=== PATIENT | female | born 2000 | race Caucasian/White ===

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

== ENCOUNTER 2021-03-29 14:26 | Outpatient (REF) | payer MEDICAID, SELFPAY ==
[2021-03-31 10:26] LABS: COVID-19 RT-PCR UVMMC Result Negative (Negative)
== END 2021-03-29 14:27 | disposition home or self-care (01) ==
LOC: LBN 14:26
PROVIDERS: PCP Internal Medicine; Visit Provider Internal Medicine
DX: Z20.822 Contact with and (suspected) exposure to COVID-19 (principal)
CPT/HCPCS: U0003

== ENCOUNTER 2021-05-03 18:04 | Emergency (ER) | payer MEDICAID, SELFPAY ==
[2021-05-03 18:08] VITALS: BP 138/94; PULSE 110; RESP 18; TEMP 37.2; O2SAT 99
--- NOTE | 2021-05-03 18:46 | ED.GENADUL_ITS ---
Discharge Plan Disposition Patient Disposition: HOME Condition: Stable Discharge Details Clinical Impression: Otitis media Primary Care Provider: Marquita Shell ED Provider: Eliot Anderson Home Meds and New Rx's Prescriptions: New amoxicillin-pot clavulanate [Augmentin] 875-125 mg tablet 1 tab PO BID Qty: 10 RF: 0 Continued tretinoin 0.05 % cream 1 applic TP QHS Qty: 45 RF: 3 minocycline 100 mg tablet 100 mg PO DAILY Qty: 30 RF: 0 Hold Instructions: Home Medication placed on hold at Doctor's office Zyrtec 10 mg capsule 10 mg PO DAILY Qty: 30 RF: 2 trazodone 100 mg tablet 100 mg PO QHS PRN (Reason: sleep) Qty: 90 RF: 3 clindamycin-benzoyl peroxide 1.2 %(1 % base) -5 % gel 1 applic TP DAILY Qty: 45 RF: 3 Kyleena 17.5 mcg/24 hrs (5 yrs) 19.5 mg intrauterine device 1 device intrauterine ONCE RF: 0 Discharge Instructions Instructions: Ear Infection (ED) Additional Instructions: Augmentin as directed, first dose given now. [id number] Tylenol, Motrin, antihistamine, and decongestant as directed for symptomatic control. Please watch for new or worsening symptoms and return to the ER for any concerns. Lastly, I do recommend contacting your primary care provider for follow-up symptoms are improving the next few days. Medical Decision Making 20-year-old female reporting bilateral ear pain for the past 2 weeks, significant left ear pain today. She appears uncomfortable, crying. No evidence of otitis externa or perforated eardrum. The right eardrum appears dull but the left ear. Very erythematous, loss of landmarks. Given the duration of her symptoms and severity, I do believe initiating oral antibiotic therapy is reasonable. Patient did drive herself here to the ER, we discussed analgesia, she is agreeable to IM Toradol. We will also give a single dose of Augmentin now. We did discuss the importance of treating her symptoms with antihistamines, decongestants, and maxing out both Tylenol and Motrin for her discomfort. The patient did respond very well to the IM Toradol. No longer crying. Comfortable with discharge. Standard discharge and return precautions provided This documentation was generated using JDLabation system, please disregard any oddities of phrase or misspellings. Medical Records Medical records reviewed: Yes I reviewed the patient's medical records. HPI General Mode of arrival: ambulatory . Date/Time Provider Initiated Documentation: 05/03/21 18:35 . Limitations to Documentation: no limitations . Information obtained by: patient . HPI Narrative: This is a 20-year-old female, past medical history of allergies, asthma, states that she got over Covid a few weeks ago, presenting to the ER now reporting bilateral ear pain over the past 2 weeks, feels like she is underwater and that they need to pop. Patient reports that the discomfort in her left ear became severe earlier today. She denies any other recent illness, drainage from ears, fever, sore throat or cough. She does report nasal congestion. She tried ezoi-xna-nnsnjde eardrop over the past 24 hours and took a seasonal allergy pill because she was going somewhere with cats a couple days ago. She has not taken any Tylenol or Motrin for her discomfort. Related Data Home Medications Medication Instructions Recorded Confirmed levonorgestrel 1 device INTRAUTERINE ONCE 12/31/18 05/03/21 tretinoin 0.05 % topical cream 1 applic TP QHS #45 g 06/23/20 05/03/21 cetirizine 10 mg capsule 10 mg PO DAILY #30 cap 10/27/20 05/03/21 minocycline 100 mg tablet 100 mg PO DAILY #30 tab 10/27/20 05/03/21 trazodone 100 mg tablet 100 mg PO QHS PRN #90 tab 01/24/21 05/03/21 clindamycin 1.2 % (1 % 1 applic TP DAILY #45 gm 02/28/21 05/03/21 base)-benzoyl peroxide 5 % topical gel amoxicillin-pot clavulanate 1 tab PO BID #10 tab 05/03/21 [Augmentin] Previous Rx's Medication Instructions Recorded tretinoin 0.05 % topical cream 1 applic TP QHS #45 g 06/23/20 cetirizine 10 mg capsule 10 mg PO DAILY #30 cap 10/27/20 minocycline 100 mg tablet 100 mg PO DAILY #30 tab 10/27/20 trazodone 100 mg tablet 100 mg PO QHS PRN #90 tab 01/24/21 clindamycin 1.2 % (1 % 1 applic TP DAILY #45 gm 02/28/21 base)-benzoyl peroxide 5 % topical gel amoxicillin-pot clavulanate 1 tab PO BID #10 tab 05/03/21 [Augmentin] Allergies Allergy/AdvReac Type Severity Reaction Status Date / Time house dust AdvReac Intermediate Verified 05/03/21 18:13 [place] Allergy Mild Skin Rash Uncoded 05/03/21 18:13 CATS Allergy Mild Uncoded 05/03/21 18:13 DOGS Allergy Mild Uncoded 05/03/21 18:13 General Stated Complaint: EarProblem ANKITA: 4 Review of Systems Constitutional Constitutional: Denies fever(s) and Denies headache(s) Eyes Eyes: Denies eye discharge ENT Ears, Nose, Mouth, and Throat: Denies ear discharge, Reports otalgia, Denies headache(s), Denies neck pain and Denies sore throat Cardiovascular Cardiovascular: Denies dyspnea Respiratory Respiratory: Denies cough and Denies dyspnea Musculoskeletal Musculoskeletal: Denies neck pain Integumentary/Breasts Skin/Breast: Denies rash Neurologic Neurologic: Denies headache(s) PFSH Active Problem List IUD surveillance (Acute) Insomnia (Acute) Depression (Chronic) Allergic (Acute) Pediatric body mass index (BMI) of 85th percentile to less than 95th percentile for age (Acute 03/06/17) Gastroesophageal reflux disease without esophagitis (Acute 09/06/16) Acne vulgaris (Acute 01/23/17) Academic underachievement (Acute 12/19/16) Medical History Intermittent asthma Surgical History Tonsillectomy Family History Sister PCOS (polycystic ovarian syndrome) Menorrhagia Dysmenorrhea Asthma intermittent Anxiety Depression Mother Menorrhagia Dysmenorrhea Anxiety Depression Father Essential hypertension Diabetes Other Neoplasm Maternal Aunt - breast cancer Social History Smoking/Tobacco Use Status: Never Smoking risk assessment performed?: Yes Alcohol Intake: current Alcohol Intake frequency: holidays/special occasions only Alcohol type: hard liquor Substance use type: does not use Adopted: No Caregiver/Support person: No Foster care: No Household members: none Housing: house Number of Children: 0 number of grandchildren: 0 Communication Needs: None Education Level: high school Do you need help understanding health information?: Never 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 Pets and animals: No Sexually active: Yes Do you think of yourself as: straight/heterosexual Current gender identity: female What is your relationship status?: never How often do you talk on the phone with friends or family?: three or more times per week How often do you get together with friends or relatives?: once per week Do you belong to any clubs or organized social groups?: no Panel score (0-1 are the most socially isolated patients): 1 What type of physical activity do you participate in: walking and swimming Duration: 30-45 minutes/day Frequency: daily Minerva/Hindu: Mormonism Seatbelt use: always Helmet use: Yes Helmet use: always Drive intox or ride w/intox [employer] truck driver: No Water heater temp set <120 deg: Yes Fire extinguisher in home: Yes Carbon monox detector in home: Yes Firearms in home: No Do you feel safe at home: Yes Do you feel safe in your relationship?: Yes Female Reproductive History Menstrual Age of Menarche: 14 control method: progestin IUCD History History 0 Para Hx # Term Pregnancies Multiple births Hx # Pregnancies Ectopic pregnancies AB induced Hx Number of Living Children AB spontaneous Exam Const General: cooperative, healthy appearing and other (Uncomfortable, crying) Orientation: alert and awake HENMT Head: normal to inspection, normocephalic and atraumatic Ears: external ears normal, EAC's normal and TM abnormal dull on the right, erythematous on the left and with loss of landmarks on the left; not perforated and not retracted General nose exam: external nose normal Face and sinus: normal facial exam Mouth: moist mucous membranes Throat: posterior oropharynx normal Eyes General: appearance normal, both eyes and all related structures Conjunctivae: conjunctivae normal Neck Neck: normal visual inspection, trachea midline and supple Resp Effort & Inspection: normal respiratory effort and able to speak in complete sentences Auscultation: clear to auscultation bilaterally Cardio Rate: regular rate Rhythm: regular rhythm Skin General skin exam: no rashes or lesions noted Neuro General: patient alert, patient awake, moves all extremities and no focal motor deficits Sensory Exam: no sensory deficits noted Psych Appearance: grossly normal Mental Status: mental status grossly normal Course Vital Signs Vital signs: Vital Signs Temperature 37.2 C 05/03/21 18:08 Pulse 110 H 05/03/21 18:08 Respiratory Rate 18 05/03/21 18:08 Blood Pressure 138/94 H 05/03/21 18:08 Pulse Oximetry 99 05/03/21 18:08 Temperature 37.2 C 05/03/21 18:08 Temperature Source Skin 05/03/21 18:08 Pulse 110 H 05/03/21 18:08 Respiratory Rate 18 05/03/21 18:08 Respiratory Effort 05/03/21 18:14 Blood Pressure 138/94 H 05/03/21 18:08 Blood Pressure Position Sitting 05/03/21 18:08 Pulse Oximetry 99 05/03/21 18:08 Oxygen Delivery Method Room Air 05/03/21 18:08 Oxygen Flow Rate 0 05/03/21 18:08 Pain Level 8 05/03/21 18:30 PAWSS Have you Been Recently Intoxicated or Drunk Within the Last 30 days?: No Have you Ever Experienced Previous Episodes of Alcohol Withdrawal?: No Have you ever Experienced Withdrawal Seizures?: No Have you ever Experienced Delirium Tremens(DT)s?: No Have you ever undergone Alcohol Rehabilitation Treatment (i.e, inpt ot outpatient treatment programs)?: No Have you ever Experienced Blackouts?: No Have you ever Combined Alcohol with other Downers within the last 90 days?: No Have you ever Combined Alcohol with any other Substance of Abuse during the last 90 days?: No Positive Blood Alcohol level on Presentation? [PCS.BAL]: No Evidence of Increased Autonomic Activity (i.e. HR>120, tremor, sweating, agitation, nausea)?: No Result: 0
[2021-05-03] MEDS: Ketorolac 60 MG/2 ML VIAL IM (18:53)
[2021-05-03] MEDS: Amoxicillin 875/Clav. 125 TAB PO (18:54)
--- NOTE | 2021-05-03 18:56 | NUR.NOTE ---
Nursing Note:Pt medicated as ordered, very emotional, tolerated medications, continue to monitor.
== END 2021-05-03 19:25 | disposition home or self-care (01) ==
PROVIDERS: Emergency Provider Physician Assistant; PCP Internal Medicine
DX: H66.92 Otitis media, unspecified, left ear (principal)
CPT/HCPCS: 96372; 99284; 99283; J1885

== ENCOUNTER 2021-11-20 15:24 | Outpatient (REF) | payer MEDICAID, SELFPAY ==
[2021-11-23 08:44] LABS: Chlamydia Result Negative (Negative); GC Result Negative (Negative)
== END 2021-11-20 15:25 | disposition home or self-care (01) ==
LOC: LBN 15:24
PROVIDERS: PCP Nurse Practitioner Adult Health; Visit Provider Nurse Practitioner Women's Health
DX: Z11.3 Encounter for screening for infections with a predominantly sexual mode of transmission (principal)
CPT/HCPCS: 87491; 87591

== ENCOUNTER 2021-12-09 15:33 | Outpatient (REF) | payer MEDICAID, SELFPAY ==
--- NOTE | 2021-12-09 15:30 | PAPFT_PTH ---
PATIENT: Cathleen Dejesus LOC: [facility] U#:[id number] AGE/SX: 21/F ROOM: RE12/09/[address]: RUSSELL SEXTON : 2000 BED: DIS: 12/09/2021 SPEC #: [id number] RECD: 12/12/21 12:50 STATUS: PANCHITO MINISTERIO #: [id number] KAREN: 12/09/21 15:[address]: RUSSELL SEXTON DEPT: [facility] Cytology RECD BY: Kita Blankenship ENTERED: 12/12/21 12:51 SP TYPE: PAPFT BONNIE DR: Russell Sheffield, DEREK Tissues: 1 - CX/ENDOCX FOR PAP SMEARS Procedures: PAP THIN PREP/[facility] Screening Comments: [id number] (CHLAMYDIA/GC)
[2021-12-13 15:04] LABS: Chlamydia Result Negative (Negative); GC Result Negative (Negative)
== END 2021-12-09 15:34 | disposition home or self-care (01) ==
LOC: LBN 15:33
PROVIDERS: Physician Assistant Medical; PCP Nurse Practitioner Adult Health; Visit Provider Nurse Practitioner Family
DX: N89.8 Other specified noninflammatory disorders of vagina (principal)
CPT/HCPCS: 87491; 87591; 88142; 87480; 87510; 87660

== ENCOUNTER 2023-02-05 15:44 | Outpatient (REF) | payer MEDICAID, SELFPAY ==
--- NOTE | 2023-02-05 16:15 | PAPFT_PTH ---
PATIENT: Cathleen Dejesus LOC: [facility] U#:[id number] AGE/SX: 22/F ROOM: RE02/05/[address]: Umu Camacho MD : 2000 BED: DIS: 02/05/2023 SPEC #: [id number] RECD: 02/06/23 17:31 STATUS: PANCHITO REJenn #: [id number] KAREN: 02/05/23 16:[address]: Umu Camacho DEPT: [facility] Cytology RECD BY: Kita Blankenship ENTERED: 02/06/23 17:31 SP TYPE: PAPFT BONNIE DR: Inna Sheffield APRN Tissues: 1 - CX/ENDOCX FOR PAP SMEARS Procedures: PAP THIN PREP/[facility] Screening HPV DNA PROBE Comments: [id number] (HPV 16 & 18/45) (CHLAMYDIA/GC)
[2023-02-07 15:36] LABS: Chlamydia Result Negative (Negative); GC Result Negative (Negative)
== END 2023-02-05 15:45 | disposition home or self-care (01) ==
LOC: LBN 15:44
PROVIDERS: PCP Nurse Practitioner Adult Health; Visit Provider Obstetrics & Gynecology
DX: Z11.3 Encounter for screening for infections with a predominantly sexual mode of transmission (principal); Z12.4 Encounter for screening for malignant neoplasm of cervix; R87.610 Atypical squamous cells of undetermined significance on cytologic smear of cervix (ASC-US); Z11.51 Encounter for screening for human papillomavirus (HPV); R87.810 Cervical high risk human papillomavirus (HPV) DNA test positive
CPT/HCPCS: 87491; 87591; 88142; 87624

== ENCOUNTER 2023-02-05 16:40 | Outpatient (CLI) | payer MEDICAID, SELFPAY ==
[2023-02-07 10:28] LABS: Syphilis Serology (RPR) Negative (Negative)
[2023-02-07 10:50] LABS: HIV-1/2 Ag & Ab Screen Negative (Negative)
[2023-02-07 10:55] LABS: HBs Antibody, Qual Negative (See Note); HBs Antibody, Quant 3.9 mIU/mL (See Note); Hepatitis B Core Antibody Negative (Negative); Hepatitis B surface Ag Negative (Negative); Hepatitis C Ab w Rflx HCV PCR Negative (Negative)
== END 2023-02-05 16:41 | disposition home or self-care (01) ==
LOC: LBO 16:40
PROVIDERS: PCP Nurse Practitioner Adult Health; Visit Provider Obstetrics & Gynecology
DX: Z11.3 Encounter for screening for infections with a predominantly sexual mode of transmission (principal); Z11.4 Encounter for screening for human immunodeficiency virus [HIV]; Z11.59 Encounter for screening for other viral diseases
CPT/HCPCS: 36415; 86704; 86706; 86803; 87340; 87389; 86592

== ENCOUNTER 2024-03-27 12:23 | Outpatient (REF) | payer MEDICAID, SELFPAY ==
--- NOTE | 2024-03-27 11:30 | PAPFT_PTH ---
PATIENT: Cathleen Dejesus LOC: [facility] U#:[id number] AGE/SX: 23/F ROOM: RE03/27/[address]: Arlet Aguayo DO : 2000 BED: DIS: 03/27/2024 SPEC #: [id number] RECD: 03/27/24 13:16 STATUS: PANCHITO REQ #: [id number] KAREN: 03/27/24 11:[address]: Arlet Aguayo DEPT: [facility] Cytology RECD BY: Kita Blankenship ENTERED: 03/27/24 13:16 SP TYPE: PAPFT OTHR DR: Inna Sheffield APRN Tissues: 1 - CX/ENDOCX FOR PAP SMEARS Procedures: PAP THIN PREP/[facility] Screening Comments: [id number] (CHLAMYDIA/GC) (UNSATISFACTORY FOR EVALUATION)
[2024-03-30 12:33] LABS: Chlamydia Result Negative (Negative); GC Result Negative (Negative)
== END 2024-03-27 12:24 | disposition home or self-care (01) ==
LOC: LBN 12:23
PROVIDERS: PCP Nurse Practitioner Adult Health; Visit Provider Obstetrics & Gynecology
DX: Z12.4 Encounter for screening for malignant neoplasm of cervix (principal)
CPT/HCPCS: 87491; 87591; 88142